=== PATIENT | female | born 2000 | race Caucasian/White ===

== ENCOUNTER 2021-02-12 21:21 | Emergency (ER) | payer OTHER ==
[2021-02-12 21:31] VITALS: TEMP 98.8; BMI 27.3
[2021-02-12] MEDS ORDERED: morphine CARPU-JECT 4 MG/1 ML DISP.SYRIN IVPUSH ONE (21:43)
[2021-02-12] MEDS ORDERED: SODIUM CHLORIDE 1,000 ML IV STA (21:43)
[2021-02-12] MEDS ORDERED: ONDANSETRON 4 MG/2 ML VIAL IVPB ONE (21:43)
[2021-02-12] MEDS ORDERED: morphine SULFATE 4 MG/ML VIAL ONE (21:48)
[2021-02-12] MEDS ORDERED: MORPHINE SULFATE 2 MG/ML VIAL ONE (21:49)
[2021-02-12] MEDS ORDERED: ONDANSETRON 4 MG/2 ML VIAL ONE (21:49)
[2021-02-12 21:58] LABS: BASO % 0.6 % (0-2.0); EOS % 1.3 % (0-4.5); HEMATOCRIT 42.7 % (32.4-45.2); HEMOGLOBIN 14.2 GM/dL (10.7-15.3); LYMPH % 23.3 % (8-40); MCHC 33.2 g/dl (32.0-36.0); MEAN CELL VOLUME 81.2 fl (80-96); MEAN PLT VOLUME 9.5 fl (7.5-11.1); MONO % 6.7 % (3.8-10.2); NEUT % 68.1 % (42.8-82.8); PLATELET COUNT 205 K/MM3 (134-434); RBC 5.26 M/mm3 (3.60-5.2); RDW 13.7 % (11.6-15.6); WHITE BLOOD COUNT 7.8 K/mm3 (4.0-10.0)
[2021-02-12 22:13] LABS: ALBUMIN 4.2 g/dl (3.4-5.0); BLOOD UREA NITROGEN 14.2 mg/dL (7-18)
[2021-02-12 22:18] LABS: BILIRUBIN,TOTAL 0.6 mg/dL (0.2-1); TOT PROT 7.6 g/dl (6.4-8.2)
[2021-02-13] MEDS ORDERED: SODIUM CHLORIDE 1,000 ML IV STA (00:12)
[2021-02-13 02:15] LABS: EPI CELLS 4 /uL (0-25.1); HYALINE CASTS 0 /uL (0-3.1); PH,URINE 5.5 (5.0-8.0); URINE APPEARANCE CLEAR; URINE BACTERIA 11 /uL (0-1359); URINE BILIRUBIN NEGATIVE (NEGATIVE); URINE COLOR YELLOW; URINE GLUCOSE (UA) NEGATIVE (NEGATIVE); URINE KETONE 1+ (NEGATIVE); URINE LEUK ESTERASE NEGATIVE (NEGATIVE); URINE NITRITE NEGATIVE (NEGATIVE); URINE PROTEIN NEGATIVE (NEGATIVE); URINE RBC 659 /uL (0-23.9); URINE UROBILINOGEN 0.2 mg/dL (0.2-1.0); URINE WBC 4 /uL (0-25.8)
[2021-02-13] MEDS ORDERED: DOXYCYCLINE HYCLATE 100 MG CAPSULE PO ONE ×2 (02:44→03:02)
[2021-02-13] MEDS ORDERED: metroNIDAZOLE 250 MG TABLET PO ONE (02:44)
[2021-02-13] MEDS ORDERED: KETOROLAC TROMETHAMINE 15 MG/ML VIAL IVPUSH ONE (02:45)
[2021-02-13] MEDS ORDERED: metroNIDAZOLE 250 MG TABLET ONE (03:01)
[2021-02-13] MEDS ORDERED: KETOROLAC TROMETHAMINE 15 MG/ML VIAL ONE (03:02)
[2021-02-13 03:19] VITALS: BP 120/68; PULSE 84
== END 2021-02-13 03:19 | disposition home or self-care (01) ==
LOC: JER 21:21
PROC: 3E0333Z Introduction of Anti-inflammatory into Peripheral Vein, Percutaneous Approach (ICD-10-PCS; principal; 2021-02-12)
PROC: 3E033NZ Introduction of Analgesics, Hypnotics, Sedatives into Peripheral Vein, Percutaneous Approach (ICD-10-PCS; 2021-02-12)
PROC: 3E033GC Introduction of Other Therapeutic Substance into Peripheral Vein, Percutaneous Approach (ICD-10-PCS; 2021-02-12)
PROC: 3E0337Z Introduction of Electrolytic and Water Balance Substance into Peripheral Vein, Percutaneous Approach (ICD-10-PCS; 2021-02-12)
PROC: 3E0337Z Introduction of Electrolytic and Water Balance Substance into Peripheral Vein, Percutaneous Approach (ICD-10-PCS; 2021-02-12)
DX: R10.84 Generalized abdominal pain (principal); K51.20 Ulcerative (chronic) proctitis without complications
CPT/HCPCS: 36415; 74177-TC; 76830-TC; 80053; 81003; 84703; 85025; 86850; 86900; 86901; 99285-25; Q9967

== ENCOUNTER 2022-10-29 15:35 | Observation (INO) | payer OTHER ==
[2022-10-29 16:45] LABS: EOS % 0.6 % (0-4.5); HEMATOCRIT 35.2 % (32.4-45.2); HEMOGLOBIN 11.3 GM/dL (10.7-15.3); LYMPH % 16.5 % (8-40); MCH 24.3 pg (25.7-33.7); MCHC 32.2 g/dl (32.0-36.0); MEAN CELL VOLUME 75.5 fl (80-96); MEAN PLT VOLUME 9.1 fl (7.5-11.1); MONO % 5.8 % (3.8-10.2); NEUT % 76.1 % (42.8-82.8); PLATELET COUNT 167 10^3/uL (134-434); RBC 4.66 M/mm3 (3.60-5.2); RDW 15.1 % (11.6-15.6); WHITE BLOOD COUNT 9.7 K/mm3 (4.0-10.0)
[2022-10-29] MEDS: DEXTROSE 5%-LACTATED RINGERS 1,000 ML IV SCH ×2 (16:50→23:35)
[2022-10-29 17:04] LABS: ALBUMIN 2.8 g/dl (3.4-5.0); BLOOD UREA NITROGEN 9.9 mg/dL (7-18)
[2022-10-29 17:08] LABS: CREATININE 0.7 mg/dL (0.55-1.3)
[2022-10-29 17:09] LABS: BILIRUBIN,TOTAL 0.4 mg/dL (0.2-1); TOT PROT 6.5 g/dl (6.4-8.2)
[2022-10-29] MEDS ORDERED: METOCLOPRAMIDE HCL INJECTION 10 MG/2 ML VIAL IVPUSH ONE (19:05)
[2022-10-29] MEDS ORDERED: METOCLOPRAMIDE HCL INJECTION 10 MG/2 ML VIAL ONE (19:54)
[2022-10-29 20:35] LABS: EPI CELLS >36 /uL (0-25.1); HYALINE CASTS 6 /uL (0-3.1); PH,URINE 6.5 (5.0-8.0); URINE APPEARANCE CLEAR; URINE BACTERIA 3325 /uL (0-1359); URINE BILIRUBIN NEGATIVE (NEGATIVE); URINE COLOR YELLOW; URINE GLUCOSE (UA) NEGATIVE (NEGATIVE); URINE KETONE 2+ (NEGATIVE); URINE LEUK ESTERASE 1+ (NEGATIVE); URINE NITRITE NEGATIVE (NEGATIVE); URINE PROTEIN TRACE (NEGATIVE); URINE RBC 21 /uL (0-23.9); URINE WBC 99 /uL (0-25.8)
[2022-10-29 22:02] VITALS: BMI 26.8
[2022-10-30 01:58] VITALS: RESP 18
[2022-10-30] MEDS: CALCIUM CARBONATE 650 MG TABLET PO SCH ×2 (02:01→11:32)
[2022-10-30] MEDS ORDERED: METOCLOPRAMIDE HCL INJECTION 10 MG/2 ML VIAL IVPUSH PRN ×2 (07:45→09:59)
[2022-10-30] MEDS ORDERED: PHENOL 177 ML SPRAY BOTTLE MM PRN (07:46)
[2022-10-30 09:03] VITALS: BP 110/72; PULSE 90; TEMP 98
== END 2022-10-30 14:20 | disposition home or self-care (01) ==
LOC: JDEL 15:35 → JLDR 19:15 → J3W 21:50
PROVIDERS: ADMIT Obstetrics & Gynecology; ATTEND Obstetrics & Gynecology
PROC: 4A1HXCZ Monitoring of Products of Conception, Cardiac Rate, External Approach (ICD-10-PCS; principal; 2022-10-29)
DX: O21.9 Vomiting of pregnancy, unspecified (principal); Z3A.36 36 weeks gestation of pregnancy; J45.909 Unspecified asthma, uncomplicated; R56.9 Unspecified convulsions; Z88.0 Allergy status to penicillin; Z91.018 Allergy to other foods
CPT/HCPCS: 36415; 59025; 80053; 81003; 85025; G0378

== ENCOUNTER 2022-11-28 12:05 | Inpatient (IN) | payer OTHER ==
[2022-11-28] MEDS: ELECTROLYTE-148 SOLN 1,000 ML IV SCH (12:30)
[2022-11-28 13:36] LABS: BASO % 0.4 % (0-2.0); HEMATOCRIT 35.4 % (32.4-45.2); HEMOGLOBIN 11.5 GM/dL (10.7-15.3); LYMPH % 21.2 % (8-40); MCHC 32.6 g/dl (32.0-36.0); MEAN CELL VOLUME 73.6 fl (80-96); MEAN PLT VOLUME 9.6 fl (7.5-11.1); MONO % 6.5 % (3.8-10.2); NEUT % 70.9 % (42.8-82.8); PLATELET COUNT 177 10^3/uL (134-434); RBC 4.81 M/mm3 (3.60-5.2); RDW 16.1 % (11.6-15.6); WHITE BLOOD COUNT 8.5 K/mm3 (4.0-10.0)
[2022-11-28 13:42] LABS: INR 1.01 (0.83-1.09); PROTHROMBIN TIME (PATIENT) 11.7 SEC (9.7-13.0)
[2022-11-28 13:44] LABS: ACTIVATED PTT 26.9 SECONDS (25.2-36.5)
[2022-11-28 13:50] VITALS: BMI 27.7
[2022-11-28 14:15] LABS: CREATININE 0.7 mg/dL (0.55-1.3)
[2022-11-28] MEDS ORDERED: OXYTOCIN 30 UNITS in 0.9% NS 30 UNIT/500 ML INFUS.BAG IVPB SCH (19:00)
[2022-11-28] MEDS ORDERED: BUTORPHANOL TARTRATE 2 MG/ML VIAL IVPB ONE (21:30)
[2022-11-28] MEDS ORDERED: PROMETHAZINE HCL 25 MG/1 ML VIAL IVPB ONE (21:30)
[2022-11-29] MEDS ORDERED: OXYTOCIN 20 UNITS in 0.9% NS 20 UNIT/1,000 ML INFUS.BAG IV ONE (00:02)
[2022-11-29] MEDS ORDERED: LIDOCAINE HCL 1% PRESERVATIVE FREE - 30ML VIAL ONE (00:02)
[2022-11-29] MEDS ORDERED: FENTANYL/BUPIVACAINE/NS/PF - PCEA - 50 ML DISP.SYRIN EP ONE ×3 (07:02→12:56)
[2022-11-29] MEDS ORDERED: NALOXONE HCL 0.4 MG/ML VIAL IVPUSH PRN (07:41)
[2022-11-29] MEDS ORDERED: FENTANYL CITRATE/PF 50 MCG/ML VIAL ONE (07:48)
[2022-11-29] MEDS: FENTANYL/BUPIVACAINE/NS/PF - PCEA - 50 ML DISP.SYRIN EP SCH ×2 (08:10→13:00)
[2022-11-29] MEDS ORDERED: OXYTOCIN 30 UNITS in 0.9% NS 30 UNIT/500 ML INFUS.BAG IVPB ONE (08:48)
[2022-11-29] MEDS ORDERED: BENZOCAINE 28 GM HEMORRHOIDAL OINTMENT TP PRN (15:34)
[2022-11-29] MEDS ORDERED: BENZOCAINE 20% 57 GM BOTTLE TP PRN (15:34)
[2022-11-29] MEDS ORDERED: METHYLERGONOVINE MALEATE 0.2 MG/1 ML AMP IM PRN (15:34)
[2022-11-29] MEDS ORDERED: BISACODYL 10 MG SUPP.RECT RC PRN (15:34)
[2022-11-29] MEDS ORDERED: WITCH HAZEL 50% (TUCKS) 40 PAD/JAR PAD TP PRN (15:34)
[2022-11-29] MEDS ORDERED: oxyCODONE HCL 5 MG TABLET PO PRN (15:34)
[2022-11-29] MEDS ORDERED: OXYTOCIN 20 UNITS in 0.9% NS 20 UNIT/1,000 ML INFUS.BAG IV SCH (15:45)
[2022-11-29] MEDS: IBUPROFEN 600 MG TABLET (FP) PO PRN (16:39)
[2022-11-29] MEDS ORDERED: IBUPROFEN 600 MG TABLET (FP) PO ONE (16:40)
[2022-11-29] MEDS: ACETAMINOPHEN 325 MG TABLET (FP) PO PRN (18:31)
[2022-11-30 00:10] VITALS: RESP 18
[2022-11-30] MEDS: ACETAMINOPHEN 325 MG TABLET (FP) PO PRN ×2 (01:10→22:02)
[2022-11-30] MEDS: IBUPROFEN 600 MG TABLET (FP) PO PRN ×2 (05:02→11:54)
[2022-11-30 07:22] LABS: BASO % 0.7 % (0-2.0); EOS % 0.3 % (0-4.5); HEMATOCRIT 26.9 % (32.4-45.2); HEMOGLOBIN 8.8 GM/dL (10.7-15.3); LYMPH % 21.8 % (8-40); MCHC 32.9 g/dl (32.0-36.0); MEAN CELL VOLUME 72.8 fl (80-96); MEAN PLT VOLUME 9.5 fl (7.5-11.1); MONO % 7.6 % (3.8-10.2); NEUT % 69.6 % (42.8-82.8); PLATELET COUNT 142 10^3/uL (134-434); RBC 3.69 M/mm3 (3.60-5.2); WHITE BLOOD COUNT 8.4 K/mm3 (4.0-10.0)
[2022-11-30] MEDS: PRENATAL VITAMINS W/ FOLIC ACID TABLET (FP) PO SCH (11:54)
[2022-11-30] MEDS ORDERED: LACTATED RINGERS SOLUTION 1,000 ML/1,000 ML INFUS.BAG IV STA (12:23)
[2022-11-30] MEDS ORDERED: LACTATED RINGERS SOLUTION 1,000 ML/1,000 ML INFUS.BAG IV SCH ×2 (13:00→22:50)
[2022-11-30] MEDS: ELECTROLYTE-148 SOLN 1,000 ML IV SCH (13:16)
[2022-11-30 17:32] LABS: BASO % 0.5 % (0-2.0); EOS % 0.2 % (0-4.5); HEMOGLOBIN 8.9 GM/dL (10.7-15.3); LYMPH % 19.6 % (8-40); MCH 24.3 pg (25.7-33.7); MCHC 32.9 g/dl (32.0-36.0); MEAN CELL VOLUME 73.7 fl (80-96); MEAN PLT VOLUME 9.6 fl (7.5-11.1); MONO % 6.1 % (3.8-10.2); NEUT % 73.6 % (42.8-82.8); PLATELET COUNT 151 10^3/uL (134-434); RBC 3.67 M/mm3 (3.60-5.2); RDW 16.1 % (11.6-15.6); WHITE BLOOD COUNT 7.7 K/mm3 (4.0-10.0)
[2022-11-30] MEDS ORDERED: SENNOSIDES/DOCUSATE COMBO (SENNA PLUS) TABLET (UD) PO PRN (22:00)
[2022-12-01] MEDS: PRENATAL VITAMINS W/ FOLIC ACID TABLET (FP) PO SCH (09:20)
[2022-12-01] MEDS: IBUPROFEN 600 MG TABLET (FP) PO PRN (09:20)
[2022-12-01 10:15] VITALS: BP 130/83; PULSE 90; TEMP 97.8
== END 2022-12-01 13:45 | disposition home or self-care (01) | DRG 560 ==
LOC: JLDR 12:05 → J3W 11-29 17:00
PROVIDERS: ADMIT Obstetrics & Gynecology; ATTEND Obstetrics & Gynecology
PROC: 0W8NXZZ Division of Female Perineum, External Approach (ICD-10-PCS; principal; 2022-11-29)
PROC: 10E0XZZ Delivery of Products of Conception, External Approach (ICD-10-PCS; 2022-11-29)
DX: O48.0 Post-term pregnancy (principal); Z3A.40 40 weeks gestation of pregnancy; Z37.0 Single live birth; O75.89 Other specified complications of labor and delivery; R42 Dizziness and giddiness; R51.9 Headache, unspecified
CPT/HCPCS: 36415; 59409; 80048; 85025; 85610; 85730; 86780; 86850; 86900; 86901; C9803-CS; U0003; U0005